=== PATIENT | female | born 1955 | race Caucasian/White ===

== ENCOUNTER 2022-10-26 13:24 | Inpatient (IN) | payer MEDICARE, MEDICAID ==
[~2022-10-26] VITALS: Ht 167.6 cm; Wt 105.1 kg
[2022-10-26] MEDS ORDERED: SODIUM CHLORIDE 0.9% 1,000 ML IV ONE (13:45)
[2022-10-26] MEDS ORDERED: NITROGLYCERIN 2% OINT 1GM PKG TD ONE (14:45)
[2022-10-26] MEDS ORDERED: FUROSEMIDE 100 MG/10ML VIAL IV ONE (14:45)
[2022-10-26 14:46] LABS: Basophils # (auto) 0.1 10 ^3/uL (0-0.2); Basophils % (auto) 0.7 % (0.0-2.0); Eosinophils # (auto) 0.1 10 ^3/uL (0-0.8); Eosinophils % (auto) 1.7 % (0.0-7.0); Hematocrit 43.2 % (36.0-46.0); Hemoglobin 14.2 g/dL (12.2-16.2); Lymphocytes # (auto) 0.6 10 ^3/uL (0.4-5.4); Mean Corpuscular Hemoglobin 30.6 pg (28.0-32.0); Mean Corpuscular Hgb Conc. 32.9 g/dL (32.0-36.0); Mean Corpuscular Volume 92.9 fL (80.0-100.0); Monocytes # (auto) 0.6 10 ^3/uL (0-1.3); Monocytes % (auto) 7.9 % (0.0-12.0); Neutrophils # (auto) 6.6 10 ^3/uL (1.6-8.6); Neutrophils % (auto) 82.7 % (37.0-80.0); Red Blood Cells 4.66 10^6/uL (4.0-5.20); Red Cell Distribution Width 16.6 % (11.8-14.3)
[2022-10-26 14:49] LABS: BUN/Creatinine Ratio 26.9; Calcium 8.4 mg/dL (8.5-10.1); Potassium 3.7 mmol/L (3.5-5.1)
[2022-10-26 14:52] LABS: Bilirubin, Total 0.7 mg/dL (0.2-1.0); Total Protein 6.5 g/dL (6.4-8.2)
[2022-10-26 14:54] LABS: INR 1.11 (0.9-1.15); Partial Thromboplastin Time 30.5 sec (24.6-33.4)
[2022-10-26 16:33] LABS: Urine Bacteria MANY /hpf (None Seen); Urine Blood 2+ /uL (Negative); Urine Mucus FEW (None Seen); Urine Specific Gravity 1.025 (1.001-1.035); Urine WBC 712 /hpf (0 - 5); Urine WBC Clumps PRESENT /hpf (None Seen)
[2022-10-26] MEDS ORDERED: ACETAMINOPHEN 325 MG TAB PO PRN (16:45)
[2022-10-26] MEDS ORDERED: NITROGLYCERIN 0.4 MG SL TAB SL PRN (16:45)
[2022-10-26] MEDS ORDERED: PANTOPRAZOLE 40 MG/10 ML VIAL INJ IV ONE (16:45)
[2022-10-26] MEDS ORDERED: MORPHINE SULFATE INJ 2 MG/ml SYRG IV PRN (16:45)
[2022-10-26] MEDS: InsuLIN REG 1unit/0.01ml Soln (100units/ml) SC SCH ×2 (17:00→23:33)
[2022-10-26] MEDS ORDERED: DEXTROSE (50%) 50ML SYRG IV PRN (17:00)
[2022-10-26] MEDS ORDERED: hydrALAZINE HCL 20 MG/ML VL IV PRN (17:00)
[2022-10-26] MEDS ORDERED: ALBUTEROL MEDNEB 2.5 mg/3ml NEB NEB PRN (17:15)
[2022-10-26 18:22] LABS: CRP High Sensitivity 1.8 mg/dL (< 0.3)
[2022-10-26] MEDS: ACCU-CHEK COMFORT CURVE STRIP VI SCH ×2 (18:23→22:00)
[2022-10-26] MEDS: ALBUTEROL MEDNEB 2.5 mg/3ml NEB NEB SCH ×2 (18:26→22:08)
[2022-10-26] MEDS: IPRATROPIUM BROM 0.5 MG/2.5ML INH SOL NEB SCH ×2 (18:26→22:08)
[2022-10-26 18:30] VITALS: BP 180/93
[2022-10-27] MEDS: ALBUTEROL MEDNEB 2.5 mg/3ml NEB NEB SCH ×6 (02:00→23:26)
[2022-10-27] MEDS: IPRATROPIUM BROM 0.5 MG/2.5ML INH SOL NEB SCH ×6 (02:00→23:26)
[2022-10-27 02:55] VITALS: BP 145/70
[2022-10-27 05:00] VITALS: BP 146/81
[2022-10-27] MEDS ORDERED: BRIM1SOL (05:37)
[2022-10-27] MEDS ORDERED: DORZ2SOL18 EACHEYE (05:37)
[2022-10-27] MEDS: ACCU-CHEK COMFORT CURVE STRIP VI SCH ×4 (06:40→22:25)
[2022-10-27] MEDS: InsuLIN REG 1unit/0.01ml Soln (100units/ml) SC SCH ×4 (06:40→22:34)
[2022-10-27 06:54] LABS: Basophils # (auto) 0 10 ^3/uL (0-0.2); Basophils % (auto) 0.4 % (0.0-2.0); Eosinophils # (auto) 0.1 10 ^3/uL (0-0.8); Hematocrit 36.3 % (36.0-46.0); Lymphocytes # (auto) 0.5 10 ^3/uL (0.4-5.4); Lymphocytes % (auto) 7.6 % (10.0-50.0); Mean Corpuscular Hemoglobin 31.2 pg (28.0-32.0); Mean Corpuscular Hgb Conc. 33.1 g/dL (32.0-36.0); Mean Corpuscular Volume 94.1 fL (80.0-100.0); Monocytes # (auto) 0.6 10 ^3/uL (0-1.3); Monocytes % (auto) 8.5 % (0.0-12.0); Neutrophils # (auto) 5.5 10 ^3/uL (1.6-8.6); Neutrophils % (auto) 82.5 % (37.0-80.0); Nucleated Red Blood Cells % 0.1 %; Red Blood Cells 3.85 10^6/uL (4.0-5.20); Red Cell Distribution Width 16.5 % (11.8-14.3); White Blood Cell 6.7 10^3/uL (4.4-10.8)
[2022-10-27 06:55] LABS: Albumin 2.6 g/dL (3.4-5.0); BUN/Creatinine Ratio 22.4; Calcium 8.2 mg/dL (8.5-10.1)
[2022-10-27 06:57] LABS: Bilirubin, Total 0.5 mg/dL (0.2-1.0); Total Protein 5.4 g/dL (6.4-8.2)
[2022-10-27] MEDS: ENOXAPARIN SOD 40 MG/0.4 ML SYRINGE SC SCH (09:28)
[2022-10-27] MEDS ORDERED: FUROSEMIDE 20 MG/2 ML VIAL IV SCH (10:00)
[2022-10-27] MEDS ORDERED: PANTOPRAZOLE 40 MG/10 ML VIAL INJ IV SCH (10:00)
[2022-10-27 10:12] VITALS: BP 145/74
[2022-10-27] MEDS ORDERED: cefTRIAXone 1GM/50ML D5W 50 ML IV ONE (12:30)
[2022-10-27] MEDS ORDERED: SPIRONOLACTONE 25 MG TAB PO ONE (12:30)
[2022-10-27] MEDS ORDERED: VANCOMYCIN PER PHARMACY 0 MG IV SCH (12:30)
[2022-10-27] MEDS ORDERED: LISINOPRIL 10 MG TAB PO ONE (12:30)
[2022-10-27 13:00] VITALS: BP 139/71
[2022-10-27] MEDS: VANCOMYCIN 1GM/250ML 250 ML IV SCH (15:16)
[2022-10-27] MEDS: FUROSEMIDE 20 MG/2 ML VIAL IV SCH (16:32)
[2022-10-27 17:04] VITALS: BP 159/69
[2022-10-27 22:00] VITALS: BP 144/77
[2022-10-28] MEDS: ALBUTEROL MEDNEB 2.5 mg/3ml NEB NEB SCH ×7 (02:00→22:24)
[2022-10-28] MEDS: IPRATROPIUM BROM 0.5 MG/2.5ML INH SOL NEB SCH ×7 (02:00→22:25)
[2022-10-28 05:00] VITALS: BP 135/99
[2022-10-28 06:22] LABS: Basophils # (auto) 0 10 ^3/uL (0-0.2); Basophils % (auto) 0.5 % (0.0-2.0); Eosinophils # (auto) 0.1 10 ^3/uL (0-0.8); Eosinophils % (auto) 1.3 % (0.0-7.0); Hemoglobin 12.5 g/dL (12.2-16.2); Lymphocytes # (auto) 0.7 10 ^3/uL (0.4-5.4); Mean Corpuscular Hemoglobin 31.2 pg (28.0-32.0); Mean Corpuscular Hgb Conc. 33.8 g/dL (32.0-36.0); Mean Corpuscular Volume 92.3 fL (80.0-100.0); Monocytes # (auto) 0.7 10 ^3/uL (0-1.3); Monocytes % (auto) 9.8 % (0.0-12.0); Neutrophils # (auto) 5.9 10 ^3/uL (1.6-8.6); Neutrophils % (auto) 79.4 % (37.0-80.0); Nucleated Red Blood Cells % 0.1 %; Red Blood Cells 4.01 10^6/uL (4.0-5.20); Red Cell Distribution Width 16.2 % (11.8-14.3); White Blood Cell 7.4 10^3/uL (4.4-10.8)
[2022-10-28] MEDS: EMPAGLIFLOZIN 10 MG TAB PO SCH (06:58)
[2022-10-28] MEDS: InsuLIN REG 1unit/0.01ml Soln (100units/ml) SC SCH ×4 (06:59→22:00)
[2022-10-28] MEDS: ACCU-CHEK COMFORT CURVE STRIP VI SCH ×4 (07:00→22:20)
[2022-10-28 07:03] LABS: Calcium 8.4 mg/dL (8.5-10.1); Potassium 3.7 mmol/L (3.5-5.1)
[2022-10-28] MEDS: VANCOMYCIN 1GM/250ML 250 ML IV SCH (08:33)
[2022-10-28 08:58] VITALS: BP 181/87
[2022-10-28] MEDS: SPIRONOLACTONE 25 MG TAB PO SCH (09:09)
[2022-10-28] MEDS: cefTRIAXone 1GM/50ML D5W 50 ML IV SCH (09:09)
[2022-10-28] MEDS: ENOXAPARIN SOD 40 MG/0.4 ML SYRINGE SC SCH (09:10)
[2022-10-28] MEDS: FUROSEMIDE 20 MG/2 ML VIAL IV SCH (09:14)
[2022-10-28] MEDS ORDERED: LISINOPRIL 10 MG TAB PO SCH (10:00)
[2022-10-28] MEDS ORDERED: CARVEDILOL 3.125 MG TAB PO ONE (12:00)
[2022-10-28] MEDS ORDERED: D5W/SOD CHL 0.45% 500 ML IV ONE (12:30)
[2022-10-28 12:57] VITALS: BP 160/74
[2022-10-28 16:34] VITALS: BP 151/70
[2022-10-28] MEDS ORDERED: ALBUTEROL SULF 2.5 MG/0.5ML(0.5%) NEB SOLN ONE ×2 (17:59→22:01)
[2022-10-28] MEDS: EYE LEFTEYE SCH (21:59)
[2022-10-28] MEDS: BRIMONIDINE 0.2% LEFTEYE SCH (21:59)
[2022-10-28 22:00] VITALS: BP 151/68
[2022-10-28] MEDS: DORZOLAMIDE TIMOLOL EACHEYE SCH (22:00)
[2022-10-28] MEDS: EYE EACHEYE SCH (22:00)
[2022-10-28] MEDS: CARVEDILOL 3.125 MG TAB PO SCH (22:00)
[2022-10-29] MEDS: VANCOMYCIN 1GM/250ML 250 ML IV SCH ×2 (01:44→20:33)
[2022-10-29] MEDS: ALBUTEROL MEDNEB 2.5 mg/3ml NEB NEB SCH ×6 (02:00→22:50)
[2022-10-29] MEDS: IPRATROPIUM BROM 0.5 MG/2.5ML INH SOL NEB SCH ×6 (02:00→22:51)
[2022-10-29 05:00] VITALS: BP 163/88
[2022-10-29] MEDS ORDERED: ALBUTEROL SULF 2.5 MG/0.5ML(0.5%) NEB SOLN ONE ×5 (05:42→21:43)
[2022-10-29] MEDS: EMPAGLIFLOZIN 10 MG TAB PO SCH (06:21)
[2022-10-29] MEDS: ACCU-CHEK COMFORT CURVE STRIP VI SCH ×4 (06:21→21:51)
[2022-10-29] MEDS: InsuLIN REG 1unit/0.01ml Soln (100units/ml) SC SCH ×4 (06:23→21:51)
[2022-10-29] MEDS: EYE LEFTEYE SCH ×3 (06:24→21:51)
[2022-10-29] MEDS: BRIMONIDINE 0.2% LEFTEYE SCH ×3 (06:24→21:51)
[2022-10-29 07:10] LABS: BUN/Creatinine Ratio 25.3; Calcium 8.1 mg/dL (8.5-10.1); Potassium 4.2 mmol/L (3.5-5.1)
[2022-10-29 08:41] VITALS: BP 170/85
[2022-10-29] MEDS: cefTRIAXone 1GM/50ML D5W 50 ML IV SCH (09:13)
[2022-10-29] MEDS ORDERED: LISINOPRIL 10 MG TAB PO SCH (10:00)
[2022-10-29] MEDS: FUROSEMIDE 20 MG/2 ML VIAL IV SCH (10:21)
[2022-10-29] MEDS: EYE EACHEYE SCH ×2 (10:21→21:52)
[2022-10-29] MEDS: DORZOLAMIDE TIMOLOL EACHEYE SCH ×2 (10:21→21:52)
[2022-10-29] MEDS: SPIRONOLACTONE 25 MG TAB PO SCH (10:22)
[2022-10-29] MEDS: CARVEDILOL 3.125 MG TAB PO SCH ×2 (10:22→21:50)
[2022-10-29] MEDS: ENOXAPARIN SOD 40 MG/0.4 ML SYRINGE SC SCH (10:23)
[2022-10-29] MEDS ORDERED: FLUTICASONE PROP NASAL SPR 0.05 % (50MCG) 16GM EACHNOSTRI ONE (11:45)
[2022-10-29] MEDS: FLUTICASONE PROP NASAL SPR 0.05 % (50MCG) 16GM EACHNOSTRI SCH ×2 (12:13→21:52)
[2022-10-29 13:00] VITALS: BP 114/58
[2022-10-29 17:00] VITALS: BP 150/78
[2022-10-29] MEDS: LACTULOSE 20Gm/30ML SOLN PO PRN (18:00)
[2022-10-29 20:00] VITALS: BP 150/78
[2022-10-29] MEDS: DOCUSATE SOD 100 MG CAP PO SCH (21:50)
[2022-10-29 22:00] VITALS: BP 145/66
[2022-10-30] MEDS ORDERED: ALBUTEROL SULF 2.5 MG/0.5ML(0.5%) NEB SOLN ONE ×4 (01:55→22:15)
[2022-10-30] MEDS: ALBUTEROL MEDNEB 2.5 mg/3ml NEB NEB SCH ×6 (02:16→22:50)
[2022-10-30] MEDS: IPRATROPIUM BROM 0.5 MG/2.5ML INH SOL NEB SCH ×6 (02:16→22:50)
[2022-10-30 05:00] VITALS: BP_SYST 117; BP_SYST 121; BP_DIAS 57; BP_DIAS 69
[2022-10-30] MEDS: ACCU-CHEK COMFORT CURVE STRIP VI SCH ×4 (06:25→21:56)
[2022-10-30] MEDS: EYE LEFTEYE SCH ×3 (06:25→21:56)
[2022-10-30] MEDS: EMPAGLIFLOZIN 10 MG TAB PO SCH (06:25)
[2022-10-30] MEDS: BRIMONIDINE 0.2% LEFTEYE SCH ×3 (06:25→21:56)
[2022-10-30] MEDS: InsuLIN REG 1unit/0.01ml Soln (100units/ml) SC SCH ×4 (06:32→22:09)
[2022-10-30 07:25] LABS: BUN/Creatinine Ratio 32.6; Calcium 8.6 mg/dL (8.5-10.1); Potassium 4.1 mmol/L (3.5-5.1)
[2022-10-30 08:27] VITALS: BP 106/52
[2022-10-30] MEDS: cefTRIAXone 1GM/50ML D5W 50 ML IV SCH (08:47)
[2022-10-30] MEDS: FLUTICASONE PROP NASAL SPR 0.05 % (50MCG) 16GM EACHNOSTRI SCH ×2 (10:27→21:56)
[2022-10-30] MEDS: EYE EACHEYE SCH ×2 (10:27→21:56)
[2022-10-30] MEDS: DORZOLAMIDE TIMOLOL EACHEYE SCH ×2 (10:27→21:56)
[2022-10-30] MEDS: FUROSEMIDE 20 MG/2 ML VIAL IV SCH (10:27)
[2022-10-30] MEDS: DOCUSATE SOD 100 MG CAP PO SCH ×2 (10:28→21:55)
[2022-10-30] MEDS: SPIRONOLACTONE 25 MG TAB PO SCH (10:28)
[2022-10-30] MEDS: ENOXAPARIN SOD 40 MG/0.4 ML SYRINGE SC SCH (10:29)
[2022-10-30] MEDS: CARVEDILOL 3.125 MG TAB PO SCH ×2 (10:29→21:55)
[2022-10-30 12:54] VITALS: BP 122/60
[2022-10-30] MEDS: LACTULOSE 20Gm/30ML SOLN PO PRN (13:37)
[2022-10-30 16:59] VITALS: BP 115/46
[2022-10-30] MEDS ORDERED: VANCOMYCIN 1GM/250ML 250 ML IV SCH (20:00)
[2022-10-30] MEDS: SACUBITRIL-VALSARTAN 24mg/26mg TAB PO SCH (21:55)
[2022-10-30 22:00] VITALS: BP 151/74
[2022-10-31] MEDS: IPRATROPIUM BROM 0.5 MG/2.5ML INH SOL NEB SCH ×6 (02:00→22:56)
[2022-10-31] MEDS: ALBUTEROL MEDNEB 2.5 mg/3ml NEB NEB SCH ×6 (02:00→22:56)
[2022-10-31] MEDS ORDERED: ALBUTEROL SULF 2.5 MG/0.5ML(0.5%) NEB SOLN ONE ×6 (02:18→22:04)
[2022-10-31 05:22] VITALS: BP 132/57
[2022-10-31] MEDS: EMPAGLIFLOZIN 10 MG TAB PO SCH (06:24)
[2022-10-31] MEDS: EYE LEFTEYE SCH ×3 (06:26→22:00)
[2022-10-31] MEDS: BRIMONIDINE 0.2% LEFTEYE SCH ×3 (06:26→22:00)
[2022-10-31] MEDS: ACCU-CHEK COMFORT CURVE STRIP VI SCH ×4 (06:27→22:00)
[2022-10-31] MEDS: InsuLIN REG 1unit/0.01ml Soln (100units/ml) SC SCH ×4 (06:27→22:37)
[2022-10-31 08:43] VITALS: BP 146/69
[2022-10-31] MEDS: FLUTICASONE PROP NASAL SPR 0.05 % (50MCG) 16GM EACHNOSTRI SCH ×2 (08:48→22:46)
[2022-10-31] MEDS: EYE EACHEYE SCH ×2 (08:51→22:46)
[2022-10-31] MEDS: DORZOLAMIDE TIMOLOL EACHEYE SCH ×2 (08:51→22:46)
[2022-10-31] MEDS: cefTRIAXone 1GM/50ML D5W 50 ML IV SCH (08:52)
[2022-10-31] MEDS: ENOXAPARIN SOD 40 MG/0.4 ML SYRINGE SC SCH (08:53)
[2022-10-31] MEDS: SPIRONOLACTONE 25 MG TAB PO SCH (08:54)
[2022-10-31] MEDS: CARVEDILOL 3.125 MG TAB PO SCH ×2 (08:55→22:46)
[2022-10-31] MEDS: FUROSEMIDE 20 MG/2 ML VIAL IV SCH ×2 (08:56→22:46)
[2022-10-31] MEDS: SACUBITRIL-VALSARTAN 24mg/26mg TAB PO SCH ×2 (09:15→22:44)
[2022-10-31] MEDS: DOCUSATE SOD 100 MG CAP PO SCH ×2 (10:00→22:00)
[2022-10-31 13:00] VITALS: BP 143/59
[2022-10-31 17:00] VITALS: BP 120/73
[2022-10-31 22:00] VITALS: BP 122/69
[2022-11-01] MEDS ORDERED: ALBUTEROL SULF 2.5 MG/0.5ML(0.5%) NEB SOLN ONE ×5 (01:39→18:09)
[2022-11-01] MEDS: IPRATROPIUM BROM 0.5 MG/2.5ML INH SOL NEB SCH ×7 (01:40→22:38)
[2022-11-01] MEDS: ALBUTEROL MEDNEB 2.5 mg/3ml NEB NEB SCH ×6 (01:40→22:38)
[2022-11-01 05:00] VITALS: BP 161/66
[2022-11-01] MEDS: InsuLIN REG 1unit/0.01ml Soln (100units/ml) SC SCH ×4 (06:23→22:00)
[2022-11-01] MEDS: EMPAGLIFLOZIN 10 MG TAB PO SCH (06:27)
[2022-11-01] MEDS: BRIMONIDINE 0.2% LEFTEYE SCH ×3 (06:27→22:02)
[2022-11-01] MEDS: EYE LEFTEYE SCH ×3 (06:27→22:02)
[2022-11-01] MEDS ORDERED: ONDANSETRON HCL 4 MG/2 ML VIAL IV PRN (07:00)
[2022-11-01] MEDS: ACCU-CHEK COMFORT CURVE STRIP VI SCH ×4 (07:10→22:00)
[2022-11-01] MEDS: FUROSEMIDE 20 MG/2 ML VIAL IV SCH (08:12)
[2022-11-01] MEDS: ENOXAPARIN SOD 40 MG/0.4 ML SYRINGE SC SCH (08:13)
[2022-11-01] MEDS: DORZOLAMIDE TIMOLOL EACHEYE SCH ×2 (08:16→22:02)
[2022-11-01] MEDS: EYE EACHEYE SCH ×2 (08:16→22:02)
[2022-11-01 08:36] LABS: BUN/Creatinine Ratio 30.3; Calcium 8.5 mg/dL (8.5-10.1); Potassium 3.9 mmol/L (3.5-5.1)
[2022-11-01 08:52] VITALS: BP 151/58
[2022-11-01] MEDS ORDERED: PROMETHAZINE HCL 25 MG/ML 1ML IV ONE (12:15)
[2022-11-01] MEDS ORDERED: PANTOPRAZOLE 40 MG/10 ML VIAL INJ IV ONE (12:15)
[2022-11-01 13:00] VITALS: BP 136/51
[2022-11-01 13:22] LABS: Basophils # (auto) 0 10 ^3/uL (0-0.2); Basophils % (auto) 0.5 % (0.0-2.0); Eosinophils # (auto) 0 10 ^3/uL (0-0.8); Eosinophils % (auto) 0.4 % (0.0-7.0); Hematocrit 39.1 % (36.0-46.0); Hemoglobin 12.8 g/dL (12.2-16.2); Lymphocytes # (auto) 0.4 10 ^3/uL (0.4-5.4); Lymphocytes % (auto) 5.1 % (10.0-50.0); Mean Corpuscular Hemoglobin 30.3 pg (28.0-32.0); Mean Corpuscular Hgb Conc. 32.7 g/dL (32.0-36.0); Mean Corpuscular Volume 92.7 fL (80.0-100.0); Monocytes # (auto) 0.6 10 ^3/uL (0-1.3); Monocytes % (auto) 7.6 % (0.0-12.0); Neutrophils % (auto) 86.4 % (37.0-80.0); Nucleated Red Blood Cells % 0.1 %; Red Blood Cells 4.22 10^6/uL (4.0-5.20); Red Cell Distribution Width 16.4 % (11.8-14.3)
[2022-11-01 17:13] VITALS: BP 155/68
[2022-11-01] MEDS: DOCUSATE SOD 100 MG CAP PO SCH ×2 (17:54→22:00)
[2022-11-01] MEDS: SACUBITRIL-VALSARTAN 24mg/26mg TAB PO SCH ×2 (17:55→22:02)
[2022-11-01] MEDS: CARVEDILOL 3.125 MG TAB PO SCH ×2 (17:57→22:00)
[2022-11-01] MEDS: levoFLOXacin 500 MG TAB PO SCH (17:58)
[2022-11-01] MEDS: SPIRONOLACTONE 25 MG TAB PO SCH (17:59)
[2022-11-01] MEDS: FLUTICASONE PROP NASAL SPR 0.05 % (50MCG) 16GM EACHNOSTRI SCH ×2 (18:05→22:02)
[2022-11-01 20:25] VITALS: BP 155/68
[2022-11-01 22:00] VITALS: BP 110/47
[2022-11-02] MEDS: ALBUTEROL MEDNEB 2.5 mg/3ml NEB NEB SCH ×3 (02:00→10:00)
[2022-11-02] MEDS: IPRATROPIUM BROM 0.5 MG/2.5ML INH SOL NEB SCH ×5 (02:00→19:10)
[2022-11-02 05:00] VITALS: BP 141/66
[2022-11-02] MEDS ORDERED: ALBUTEROL SULF 2.5 MG/0.5ML(0.5%) NEB SOLN ONE ×4 (06:00→13:32)
[2022-11-02] MEDS: EYE LEFTEYE SCH ×3 (06:13→21:08)
[2022-11-02] MEDS: EMPAGLIFLOZIN 10 MG TAB PO SCH (06:13)
[2022-11-02] MEDS: BRIMONIDINE 0.2% LEFTEYE SCH ×3 (06:13→21:08)
[2022-11-02] MEDS: InsuLIN REG 1unit/0.01ml Soln (100units/ml) SC SCH ×4 (06:13→21:09)
[2022-11-02 06:22] LABS: Basophils # (auto) 0.1 10 ^3/uL (0-0.2); Basophils % (auto) 0.7 % (0.0-2.0); Eosinophils # (auto) 0.1 10 ^3/uL (0-0.8); Eosinophils % (auto) 0.8 % (0.0-7.0); Hematocrit 38.7 % (36.0-46.0); Hemoglobin 12.7 g/dL (12.2-16.2); Lymphocytes # (auto) 0.6 10 ^3/uL (0.4-5.4); Lymphocytes % (auto) 7.3 % (10.0-50.0); Mean Corpuscular Hemoglobin 30.8 pg (28.0-32.0); Mean Corpuscular Hgb Conc. 32.8 g/dL (32.0-36.0); Mean Corpuscular Volume 93.9 fL (80.0-100.0); Monocytes # (auto) 0.7 10 ^3/uL (0-1.3); Monocytes % (auto) 8.5 % (0.0-12.0); Neutrophils # (auto) 6.5 10 ^3/uL (1.6-8.6); Neutrophils % (auto) 82.7 % (37.0-80.0); Red Blood Cells 4.13 10^6/uL (4.0-5.20); White Blood Cell 7.9 10^3/uL (4.4-10.8)
[2022-11-02] MEDS: ACCU-CHEK COMFORT CURVE STRIP VI SCH ×4 (06:33→21:09)
[2022-11-02 06:45] LABS: Potassium 3.9 mmol/L (3.5-5.1)
[2022-11-02 06:56] LABS: Albumin 2.4 g/dL (3.4-5.0); BUN/Creatinine Ratio 27.4; Bilirubin, Total 0.6 mg/dL (0.2-1.0); Calcium 8.8 mg/dL (8.5-10.1); Total Protein 6.3 g/dL (6.4-8.2)
[2022-11-02 09:00] VITALS: BP 138/57
[2022-11-02] MEDS: PANTOPRAZOLE 40 MG/10 ML VIAL INJ IV SCH (09:31)
[2022-11-02] MEDS: CARVEDILOL 3.125 MG TAB PO SCH ×2 (09:31→21:26)
[2022-11-02] MEDS: levoFLOXacin 500 MG TAB PO SCH (09:31)
[2022-11-02] MEDS: DOCUSATE SOD 100 MG CAP PO SCH ×2 (09:31→21:08)
[2022-11-02] MEDS: SPIRONOLACTONE 25 MG TAB PO SCH (09:31)
[2022-11-02] MEDS: SACUBITRIL-VALSARTAN 24mg/26mg TAB PO SCH ×2 (09:31→21:08)
[2022-11-02] MEDS: EYE EACHEYE SCH ×2 (09:33→21:07)
[2022-11-02] MEDS: DORZOLAMIDE TIMOLOL EACHEYE SCH ×2 (09:33→21:07)
[2022-11-02] MEDS: FLUTICASONE PROP NASAL SPR 0.05 % (50MCG) 16GM EACHNOSTRI SCH ×2 (09:33→21:08)
[2022-11-02] MEDS ORDERED: SUCRALFATE 1 GM TAB PO ONE (12:00)
[2022-11-02 12:46] VITALS: BP 140/56
[2022-11-02] MEDS ORDERED: ALBUTEROL SULF 2.5 MG/0.5ML(0.5%) NEB SOLN NEB PRN (14:15)
[2022-11-02 16:39] VITALS: BP 140/67
[2022-11-02] MEDS: SUCRALFATE 1 GM TAB PO SCH ×2 (17:26→21:08)
[2022-11-02] MEDS: ALBUTEROL SULF 2.5 MG/0.5ML(0.5%) NEB SOLN NEB SCH (19:10)
[2022-11-02 22:00] VITALS: BP 102/36
[2022-11-03] MEDS: IPRATROPIUM BROM 0.5 MG/2.5ML INH SOL NEB SCH ×7 (00:29→22:20)
[2022-11-03] MEDS: ALBUTEROL SULF 2.5 MG/0.5ML(0.5%) NEB SOLN NEB SCH ×7 (00:29→22:20)
[2022-11-03 05:00] VITALS: BP 120/51
[2022-11-03] MEDS: EYE LEFTEYE SCH ×3 (06:02→21:52)
[2022-11-03] MEDS: EMPAGLIFLOZIN 10 MG TAB PO SCH (06:02)
[2022-11-03] MEDS: BRIMONIDINE 0.2% LEFTEYE SCH ×3 (06:02→21:52)
[2022-11-03] MEDS: SUCRALFATE 1 GM TAB PO SCH ×4 (06:02→21:53)
[2022-11-03] MEDS: ACCU-CHEK COMFORT CURVE STRIP VI SCH ×4 (06:03→21:54)
[2022-11-03] MEDS: InsuLIN REG 1unit/0.01ml Soln (100units/ml) SC SCH ×4 (06:03→22:26)
[2022-11-03 06:35] LABS: Basophils # (auto) 0 10 ^3/uL (0-0.2); Basophils % (auto) 0.6 % (0.0-2.0); Eosinophils # (auto) 0.1 10 ^3/uL (0-0.8); Eosinophils % (auto) 1.1 % (0.0-7.0); Hematocrit 37.4 % (36.0-46.0); Hemoglobin 12.2 g/dL (12.2-16.2); Lymphocytes # (auto) 0.5 10 ^3/uL (0.4-5.4); Lymphocytes % (auto) 7.6 % (10.0-50.0); Mean Corpuscular Hemoglobin 30.8 pg (28.0-32.0); Mean Corpuscular Hgb Conc. 32.7 g/dL (32.0-36.0); Mean Corpuscular Volume 94.2 fL (80.0-100.0); Monocytes # (auto) 0.7 10 ^3/uL (0-1.3); Monocytes % (auto) 11.1 % (0.0-12.0); Neutrophils # (auto) 5.2 10 ^3/uL (1.6-8.6); Neutrophils % (auto) 79.6 % (37.0-80.0); Red Blood Cells 3.97 10^6/uL (4.0-5.20); White Blood Cell 6.5 10^3/uL (4.4-10.8)
[2022-11-03 06:55] LABS: BUN/Creatinine Ratio 26.8; Calcium 8.2 mg/dL (8.5-10.1); Potassium 3.9 mmol/L (3.5-5.1)
[2022-11-03] MEDS: FLUTICASONE PROP NASAL SPR 0.05 % (50MCG) 16GM EACHNOSTRI SCH ×2 (11:10→21:52)
[2022-11-03] MEDS: DORZOLAMIDE TIMOLOL EACHEYE SCH ×2 (11:10→21:52)
[2022-11-03] MEDS: EYE EACHEYE SCH ×2 (11:10→21:52)
[2022-11-03] MEDS: PANTOPRAZOLE 40 MG/10 ML VIAL INJ IV SCH (11:11)
[2022-11-03] MEDS: levoFLOXacin 500 MG TAB PO SCH (11:12)
[2022-11-03] MEDS: SACUBITRIL-VALSARTAN 24mg/26mg TAB PO SCH (11:12)
[2022-11-03] MEDS: DOCUSATE SOD 100 MG CAP PO SCH ×2 (11:12→21:53)
[2022-11-03] MEDS: SPIRONOLACTONE 25 MG TAB PO SCH (11:12)
[2022-11-03 12:30] VITALS: BP 125/76
[2022-11-03 16:46] VITALS: BP 122/66
[2022-11-03] MEDS: CARVEDILOL 3.125 MG TAB PO SCH (21:54)
[2022-11-03 22:00] VITALS: BP 119/48
[2022-11-04] MEDS: ALBUTEROL SULF 2.5 MG/0.5ML(0.5%) NEB SOLN NEB SCH ×3 (02:00→10:11)
[2022-11-04] MEDS: IPRATROPIUM BROM 0.5 MG/2.5ML INH SOL NEB SCH ×3 (02:00→10:11)
[2022-11-04 05:00] VITALS: BP 145/67
[2022-11-04] MEDS: EMPAGLIFLOZIN 10 MG TAB PO SCH (05:40)
[2022-11-04] MEDS: EYE LEFTEYE SCH ×2 (05:40→14:59)
[2022-11-04] MEDS: SUCRALFATE 1 GM TAB PO SCH ×3 (05:40→17:00)
[2022-11-04] MEDS: BRIMONIDINE 0.2% LEFTEYE SCH ×2 (05:40→14:59)
[2022-11-04] MEDS: ACCU-CHEK COMFORT CURVE STRIP VI SCH ×3 (05:40→17:00)
[2022-11-04] MEDS: InsuLIN REG 1unit/0.01ml Soln (100units/ml) SC SCH ×3 (05:49→17:00)
[2022-11-04 06:34] LABS: Potassium 3.8 mmol/L (3.5-5.1)
[2022-11-04 06:40] LABS: Calcium 8.6 mg/dL (8.5-10.1)
[2022-11-04 08:57] VITALS: BP 144/54
[2022-11-04] MEDS: CARVEDILOL 3.125 MG TAB PO SCH (10:00)
[2022-11-04] MEDS: FLUTICASONE PROP NASAL SPR 0.05 % (50MCG) 16GM EACHNOSTRI SCH ×2 (10:00→14:58)
[2022-11-04] MEDS: DORZOLAMIDE TIMOLOL EACHEYE SCH (10:07)
[2022-11-04] MEDS: EYE EACHEYE SCH (10:07)
[2022-11-04 12:30] VITALS: BP 135/58
[2022-11-04] MEDS: PANTOPRAZOLE 40 MG/10 ML VIAL INJ IV SCH (14:59)
[2022-11-04] MEDS: levoFLOXacin 500 MG TAB PO SCH (14:59)
[2022-11-04] MEDS: DOCUSATE SOD 100 MG CAP PO SCH (14:59)
[2022-11-04 16:45] VITALS: BP 134/59
== END 2022-11-04 18:10 | DRG 602 ==
LOC: EDBD 13:24 → ER 13:24 → TELE 16:51 → TELE-WESTW 10-27 01:46
PROVIDERS: ADMIT Nurse Practitioner Family; ATTEND Internal Medicine
DX: L03.116 Cellulitis of left lower limb (principal); I50.43 Acute on chronic combined systolic (congestive) and diastolic (congestive) heart failure; J96.01 Acute respiratory failure with hypoxia; J44.1 Chronic obstructive pulmonary disease with (acute) exacerbation; E46 Unspecified protein-calorie malnutrition; N39.0 Urinary tract infection, site not specified; I11.0 Hypertensive heart disease with heart failure; K29.70 Gastritis, unspecified, without bleeding; L03.115 Cellulitis of right lower limb; E83.51 Hypocalcemia; E66.01 Morbid (severe) obesity due to excess calories; Z20.822 Contact with and (suspected) exposure to COVID-19; B96.20 Unspecified Escherichia coli [E. coli] as the cause of diseases classified elsewhere; E11.40 Type 2 diabetes mellitus with diabetic neuropathy, unspecified; Z79.891 Long term (current) use of opiate analgesic; Z79.899 Other long term (current) drug therapy; Z87.440 Personal history of urinary (tract) infections; Z68.37 Body mass index [BMI] 37.0-37.9, adult
CPT/HCPCS: 36415; 71045; 80048; 80053; 80061; 80202; 81001; 82962; 83036; 83605; 83735; 83880; 84443; 84484; 85025; 85379; 85610; 85652; 85730; 86141; 87040; 87077; 87086; 87088; 87186; 87205; 87426; 93005; 93306; 93970; 94640; 96374; 97110; 97116; 97163; 97530; C9113; G0378; J0696; J1815; J2405